=== PATIENT | female | born 1970 | race Caucasian/White ===

== ENCOUNTER 2021-02-02 05:22 | Emergency (ER) | payer OTHER ==
[~2021-02-02] VITALS: Ht 170.2 cm; Wt 99.8 kg
[2021-02-02 05:35] VITALS: BP_SYST 130
[2021-02-02] MEDS ORDERED: LORazepam 2 MG/ML VIAL IM ONE (05:45)
[2021-02-02] MEDS ORDERED: LORazepam 2 MG/ML VIAL ONE (05:49)
[2021-02-02 06:35] VITALS: BP_SYST 119
== END 2021-02-02 06:35 | disposition home or self-care (01) ==
LOC: SED 05:22
DX: F41.9 Anxiety disorder, unspecified (principal); E03.9 Hypothyroidism, unspecified; E22.1 Hyperprolactinemia
CPT/HCPCS: 96372; 99283; J2060